=== PATIENT | female | born 1970 | race Caucasian/White ===

== ENCOUNTER → 2017-10-12 12:25 | Outpatient (CLI) | payer MEDICAID, SELFPAY ==
[2017-10-12 12:56] LABS: Erythrocyte Sedimentation Rate 7 mm/hr (0-20)
[2017-10-12 13:12] LABS: CRP < 2.90 mg/L (0.0-3.0); Rheumatoid Factor < 10.0 IU/mL (<15)
[2017-10-13 14:46] LABS: ANTINUCLEAR ANTIBODIES DIRECT Negative (Negative)
== END ==
PROVIDERS: Visit Provider Psychiatry & Neurology Neurology
DX: D68.59 Other primary thrombophilia (principal); G43.119 Migraine with aura, intractable, without status migrainosus; M31.6 Other giant cell arteritis
CPT/HCPCS: 36415; 81291; 85652; 86038; 86140; 86431

== ENCOUNTER → 2020-12-02 15:17 | Outpatient (CLI) | payer OTHER, SELFPAY ==
[2020-12-07 00:07] LABS: Alternaria tenuis <0.10 kU/L (Class 0); Ash, White <0.10 kU/L (Class 0); Aspergillus fumigatus <0.10 kU/L (Class 0); Bermuda Grass <0.10 kU/L (Class 0); Birch <0.10 kU/L (Class 0); Black Walnut <0.10 kU/L (Class 0); Cat Hair / Dander,Stand <0.10 kU/L (Class 0); Cedar, Mountain <0.10 kU/L (Class 0); Cladosporium herbarum <0.10 kU/L (Class 0); Cockroach, American <0.10 kU/L (Class 0); Cottonwood <0.10 kU/L (Class 0); D farinae Mite <0.10 kU/L (Class 0); D pteronyssinus <0.10 kU/L (Class 0); Dog Epithelia <0.10 kU/L (Class 0); Elm, American White <0.10 kU/L (Class 0); Immunoglobulin E 17 IU/mL (6-495); Maple/Box Elder <0.10 kU/L (Class 0); Mulberry, White <0.10 kU/L (Class 0); Oak, White <0.10 kU/L (Class 0); Pecan <0.10 kU/L (Class 0); Penicillium Notatum <0.10 kU/L (Class 0); Pigweed, Rough <0.10 kU/L (Class 0); Ragweed, Short/Common <0.10 kU/L (Class 0); Russian Thistle <0.10 kU/L (Class 0); Sheep Sorrel <0.10 kU/L (Class 0); Sycamore, American <0.10 kU/L (Class 0); Timothy Grass <0.10 kU/L (Class 0)
[2020-12-07 08:38] LABS: Mouse Urine <0.10 kU/L (Class 0)
== END ==
PROVIDERS: PCP Student in an Organized Health Care Education/Training Program; Visit Provider Otolaryngology
DX: T78.40XA Allergy, unspecified, initial encounter (principal)
CPT/HCPCS: 36415; 82785; 86003

== ENCOUNTER → 2022-02-08 | Outpatient (CLI) | payer OTHER, SELFPAY ==
--- NOTE | 2022-02-08 15:34 | BI_ITS ---
MAMMOGRAPHY - BILATERAL SCREENING REASON FOR EXAM: Female, 51 years old. Routine annual screening examination. PERTINENT HISTORY: Non-contributory. Prior left excisional breast biopsy. TECHNIQUE: Digital bilateral breast randee (3D mammographic acquisition) in the CC and MLO projections. 2-D mediolateral oblique (MLO) and craniocaudad (CC) views of both breasts were obtained. CAD: Full Field Digital Mammography with Computer Added Detection was performed. COMPARISON: Comparison is made with prior examination dated 06/02/2015. FINDINGS: Breast Composition: The breasts are extremely dense, which lowers the sensitivity of mammography. There are no dominant masses or suspicious calcifications. Stable benign appearing bilateral axillary lymph nodes. No other significant abnormalities are identified. There has been no significant change since the prior study. BI/SCRN MAMM (CAD)W/RANDEE BILAT IMPRESSION: Stable bilateral screening mammogram. Yearly follow-up mammogram recommended. (A) ASSESSMENT CATEGORY: BIRADS Category 2: Benign. A letter regarding these results will be sent to the patient by the facility within 30 days. Approximately 10% of breast cancers are not detected by mammography. A normal mammogram should not delay biopsy of a clinically suspicious abnormality. [id number] Electronically Signed: Te Reynoso MD at 8:42 EST ,
== END | disposition home or self-care (01) ==
PROVIDERS: PCP Student in an Organized Health Care Education/Training Program; Visit Provider Student in an Organized Health Care Education/Training Program
DX: Z12.31 Encounter for screening mammogram for malignant neoplasm of breast (principal)
CPT/HCPCS: 77063; 77067

== ENCOUNTER → 2022-02-26 | Outpatient (CLI) | payer OTHER, SELFPAY ==
--- NOTE | 2022-02-26 09:59 | US_ITS ---
STUDY: ABDOMINAL ULTRASOUND - RIGHT UPPER QUADRANT REASON FOR VISIT: Female, 51 years old EVAL LIVER -- LESION SEEN ON CT TECHNIQUE: Ultrasound evaluation of the right upper quadrant was performed with real-time and static burch-scale imaging. TECHNICAL QUALITY: Adequate. COMPARISON: Liver ultrasound from 06/20/2015. CT abdomen/pelvis from 09/08/2015. FINDINGS: Liver: The liver measures 13.7 cm. Normal size. Heterogeneous parenchymal echogenicity. There is increased echogenicity consistent with fatty infiltration. No intrahepatic bile duct dilation. 5.4 x 4.7 x 3.1 cm hyperechoic mass in the right hepatic dome, previously measured 5.0 x 4.8 x 4.3 cm in 2016 and is likely stable given difference in technique. There is an ill-defined 4.3 x 4.8 x 4.8 cm hypoechoic area, not seen on prior ultrasound in the right hepatic dome. The direction of portal flow is hepatopetal. Gallbladder: Normal distended gallbladder. The gallbladder wall measures 2 mm. There is a negative sonographic Enamorado''s sign. There is no pericholecystic fluid. There are no gallstones. Common Bile Duct (C.B.D.): The common bile duct measures 2.1 mm. Pancreas: The visualized head, body, and proximal tail are unremarkable. The distal tail is obscured by overlying bowel gas. No duct dilation in the visualized pancreas. Right Kidney: Normal size of the right kidney. The right kidney measures 11.8 x 4.6 x 7.2 cm. Lobular appearance of the cortex appear similar to previous study from 2016 and likely represents scarring or is developmental. The right cortex measures 1.9 cm. Normal cortical echogenicity. No masses. 3 mm nonobstructing calculus. No hydronephrosis. US/Abdomen Limited IMPRESSION: 1. There is a 4.3 x 4.8 x 4.8 cm ill-defined hypoechoic lesion right hepatic dome that is ill-defined. Although this could still relate to the previously seen right hepatic dome hemangiomas, this does not have typical characteristics of a hemangioma and was not visualized on prior ultrasound. A CT or MRI with liver mass protocol is recommended for further assessment. 2. Additional stable hemangioma in the right hepatic dome. 3. Hepatic steatosis. 4. Nonobstructing right renal calculus. Electronically Signed: David Eckert, at 16:19 EST ,
== END | disposition home or self-care (01) ==
LOC: US 09:57
PROVIDERS: PCP Student in an Organized Health Care Education/Training Program
DX: K76.9 Liver disease, unspecified (principal)
CPT/HCPCS: 76705

== ENCOUNTER → 2022-12-03 | Outpatient (CLI) | payer BC, SELFPAY ==
[2022-12-03 16:54] LABS: Hematocrit 36.2 % (37-47); Hemoglobin 11.8 g/dL (12.0-15.0); Mean Corp Hgb Conc 32.6 g/dL (32-36); Mean Corpuscular Hgb 31.7 pg (27.0-32.0); Mean Corpuscular Volume 97.3 fL (81-99); Mean Platelet Vol. 11.1 fl (6.2-12.0); Platelet Count 267 K/mm3 (150-450); RBC Distribution Width CV 12.9 % (11.6-14.6); Red Blood Count 3.72 M/mm3 (4.2-5.4); White Blood Count 9.8 K/mm3 (4.4-11.0)
[2022-12-03 17:37] LABS: Anion Gap 3 (5-15); BUN 10 mg/dL (7-18); Calcium,Total 8.9 mg/dL (8.5-10.1); Chloride 106 mmol/L (98-107); Cholesterol 197 mg/dL (200); Creatinine, Serum 0.71 mg/dL (0.55-1.02); EST Glomerular Filtration Rate 92 mL/min (>60); Est Glom Filt Rate - Afr Amer 112 mL/min (>60); Ferritin 19 ng/mL (8-252); Glucose 106 mg/dL (74-106); High Density Lipoprotein 45 mg/dL; Iron 88 ug/dL (50-170); Potassium 3.7 mmol/L (3.5-5.1); Sodium Level 137 mmol/L (136-145); Thyroid Stim Hormone (TSH) 1.06 uIU/mL (0.358-3.74); Triglycerides 152 mg/dL; Very Low Density Lipoprotein 30 mg/dL (5-40)
== END | disposition home or self-care (01) ==
PROVIDERS: PCP Student in an Organized Health Care Education/Training Program
DX: R53.83 Other fatigue (principal); E78.5 Hyperlipidemia, unspecified; D64.9 Anemia, unspecified
CPT/HCPCS: 36415; 80048; 80061; 82728; 83540; 84443; 85027

== ENCOUNTER 2022-12-04 20:44 | Emergency (ER) | payer BC, SELFPAY ==
[2022-12-04 20:45] VITALS: BP 131/85; PULSE 125; RESP 15; TEMP 36.3; O2SAT 99
--- NOTE | 2022-12-04 21:09 | EX.ED.GENINJ ---
HPI History of Present Illness Chief Complaint: Laceration Narrative Narrative: Patient sustained a mechanical fall earlier today she fell and hit her chin sustaining a laceration. She has no jaw tenderness or dental pain. No loss consciousness no neck pain or weakness. No extremity injury pain PFSH PFS Home Medications citalopram 40 mg tablet 40 mg PO DAILY 06/11/15 [History Last Taken 05/02/16 40 mg] amitriptyline 50 mg tablet 50 mg PO DAILY 12/04/22 [History Last Taken Unknown] buspirone 10 mg tablet 10 mg PO BID 12/04/22 [History Last Taken Unknown] Allergy/AdvReac Type Severity Reaction Status Date / Time Environmental Allergies: Allergy Rash Verified 12/04/22 20:48 Uncoded Social History Smoking Status: Never smoker ROS ROS ED ROS Narrative Social: Noncontributory Medications: Reviewed. Tetanus is not up-to-date Past medical history: Reviewed Review of systems General: Patient has no head injury or loss of consciousness HEENT: Facial injury as in HPI Neck: No neck pain Chest wall: No chest wall contusions Skin: Chin laceration Neurological: Patient has no memory loss, confusion, or any focal weakness Back: No back pain, no problems with ambulation Musculoskeletal: No extremity injury EXAM Physical Exam Narrative Exam Narrative: Physical exam Vitals reviewed General: Does not appear in significant distress HEENT: Chin laceration, about 2.5 cm, normal bite no jaw pain. No nasal septal hematoma no other facial injury. Head: No head injury Eyes: Extraocular movements intact Neck: No C-spine tenderness with full range of motion Heart: Regular rate normal pulses Chest wall: No chest wall pain Lungs clear lungs bilaterally with normal inspiration and expiration without tachypnea Musculoskeletal: Moves all extremities without any signs of trauma Skin: Laceration as above Neurological: Patient is alert and oriented with no focal deficits Const Vital Signs: 12/04/22 20:45 Temperature 97.4 F L Temperature Source Temporal Pulse Rate 125 H Respiratory Rate 15 Blood Pressure 131/85 H Blood Pressure Mean 100 Pulse Ox 99 Oxygen Delivery Method Room Air PROC Procedures Lacerations d: Length: 0.98 in Shape: Linear Prep: Jose Miguel-[place] Laceration repair: Irrigated, Lidocaine, Local and Skin sutures Number of Sutures/[place]: 4 Suture Information: Ethilon, 5-0 and - Comment: Verbal consent. Patient tolerated procedure well MDM MDM MDM Narrative Medical decision making narrative: Tetanus was updated. At this time patient sustained a chin laceration she has no jaw tenderness no reason to get a mandible x-ray or CT. No other head injury or neck injury no loss consciousness therefore a head CT or C-spine imaging is not needed. She has no other injuries. Wound was sutured see procedure note otherwise she is significantly improved and she will be discharged in stable condition. Her injury was on the chin and not the head with no loss of consciousness. Of note initially her chart said that she is on Eliquis, she has not taken it for years, instructed that we remove this. Discharge Plan Triage Chief Complaint: Laceration ED Provider: Francisco Hernandez Dx/Rx/DC Orders Clinical Impression: Chin laceration Instructions: ED Laceration, Chin, Suture or Tape Prescriptions: No Action citalopram 40 MG tablet 40 mg PO DAILY Patient Comments: depression/anxiety buspirone 10 mg tablet 10 mg PO BID amitriptyline 50 mg tablet 50 mg PO DAILY Primary Care Provider: Esperanza Herbert Referrals: Esperanza Herbert, [Primary Care Provider] - 3-5 Days suture removal Disposition Disposition: Home, Self Care Discharge Date/Time: 12/04/22 21:26
[2022-12-04] MEDS: Diphth,Pertuss(Acell),Tet Vac 0.5 ML Vial IM (21:11)
[2022-12-04] MEDS: Lidocaine 1% (20 ml mdv) 20 ML Vial INFILT (21:13)
== END 2022-12-04 21:26 | disposition home or self-care (01) ==
PROVIDERS: Emergency Provider Emergency Medicine; PCP Student in an Organized Health Care Education/Training Program; Visit Provider Emergency Medicine
DX: S01.81XA Laceration without foreign body of other part of head, initial encounter (principal); W19.XXXA Unspecified fall, initial encounter; Z23 Encounter for immunization
CPT/HCPCS: 12011; 90471; 90715; 99283